=== PATIENT | male | born 1940 | race Caucasian/White ===

== ENCOUNTER 2020-10-17 12:16 | Inpatient (IN) ==
[2020-10-17] MEDS ORDERED: Ondansetron 4 MG/2 ML VIAL IVP ONE (14:06)
[2020-10-17] MEDS ORDERED: Morphine Sulfate 2 MG/ML SYRINGE IVP ONE (14:06)
[2020-10-17] MEDS ORDERED: Ondansetron 4 MG/2 ML VIAL IVP PRN (16:24)
[2020-10-17] MEDS ORDERED: Naloxone 0.4 MG/ML INJ IVP PRN (16:24)
[2020-10-17] MEDS ORDERED: Ondansetron ODT 4 MG TAB.RAPDIS PO PRN (17:12)
[2020-10-17] MEDS ORDERED: *HR* HYDROmorphone (PF) 1 MG/ML SYRINGE IVP ONE (17:13)
[2020-10-17] MEDS ORDERED: Perflutren Lipid Microsphere 1.3 ML in 0.9 % Sodium Chloride 8.7 ML IVP PRN (17:52)
[2020-10-17] MEDS ORDERED: *HR* HYDROmorphone 2 MG/ML SYRINGE IVP ONE (18:00)
[2020-10-17 18:19] LABS: Basophils % 0.3 %; Eosinophils # 0.1 K/mcL (0.0-0.6); Eosinophils % 0.6 %; Hematocrit 35.2 % (37.5-50.1); Hemoglobin 11.8 g/dL (12.9-16.9); Immature Granulocytes % 0.4 % (0-4); Lymphocytes # 1.8 K/mcL (0.6-4.6); Lymphocytes % 16.7 %; Mean Corpuscular HGB Conc 33.5 g/dL (31.6-35.5); Mean Corpuscular Hemoglobin 33.5 pg (28.0-33.3); Mean Platelet Volume 8.5 fL (9.4-12.4); Monocytes # 0.8 K/mcL (0.0-1.3); Monocytes % 7.7 %; Neutrophils # 7.9 K/mcL (1.6-8.9); Platelet Count 299 K/mcL (140-400); Red Blood Count 3.52 M/mcL (4.19-5.50); Red Cell Distribution Width 12.3 % (11.5-14.5); Segmented Neutrophils % 74.3 %; White Blood Count 10.6 K/mcL (4.3-11.1)
[2020-10-17 18:35] LABS: Calcium 9.2 mg/dL (8.6-10.3); Potassium 4.5 mEq/L (3.5-5.1)
[2020-10-17] MEDS: lisinopriL 20 MG TABLET PO SCH (21:25)
[2020-10-17] MEDS: *HR* HYDROmorphone 2 MG/ML SYRINGE IVP PRN (21:35)
[2020-10-18 00:57] LABS: Calcium 8.9 mg/dL (8.6-10.3); Magnesium 2.2 mg/dL (1.6-2.6); Phosphorous 4.1 mg/dL (2.7-4.5); Potassium 4.7 mEq/L (3.5-5.1)
[2020-10-18 00:59] LABS: Basophils # 0.1 K/mcL (0.0-0.2); Basophils % 0.5 %; Eosinophils # 0.1 K/mcL (0.0-0.6); Eosinophils % 0.6 %; Hematocrit 35.1 % (37.5-50.1); Hemoglobin 11.4 g/dL (12.9-16.9); Immature Granulocytes % 0.3 % (0-4); Lymphocytes # 2.1 K/mcL (0.6-4.6); Lymphocytes % 16.8 %; Mean Corpuscular HGB Conc 32.5 g/dL (31.6-35.5); Mean Corpuscular Hemoglobin 32.8 pg (28.0-33.3); Mean Corpuscular Volume 100.9 fL (83.0-100.0); Mean Platelet Volume 8.6 fL (9.4-12.4); Monocytes # 1.1 K/mcL (0.0-1.3); Monocytes % 8.7 %; Neutrophils # 8.9 K/mcL (1.6-8.9); Platelet Count 324 K/mcL (140-400); Red Blood Count 3.48 M/mcL (4.19-5.50); Red Cell Distribution Width 12.3 % (11.5-14.5); Segmented Neutrophils % 73.1 %; White Blood Count 12.2 K/mcL (4.3-11.1)
[2020-10-18] MEDS ORDERED: ABIRATERONE ACETATE 250 MG PO SCH (04:00)
[2020-10-18] MEDS: ABIRATERONE ACETATE 250 MG PO SCH (04:37)
[2020-10-18] MEDS: lisinopriL 20 MG TABLET PO SCH ×2 (08:08→20:10)
[2020-10-18] MEDS: Multivit/Ca/Min/Fe/FA 1 TAB TABLET PO SCH (08:09)
[2020-10-18] MEDS: hydroCHLOROthiazide 25 MG TABLET PO SCH (08:11)
[2020-10-18] MEDS: *HR* OxyCODONE/APAP 5/325 TABLET PO PRN ×2 (08:26→17:16)
[2020-10-18] MEDS ORDERED: (Abiraterone Acetate [Zytiga] 250 MG Tablet) PO SCH (09:00)
[2020-10-18] MEDS: predniSONE 5 MG TABLET PO SCH ×2 (09:33→21:18)
[2020-10-18] MEDS: *HR* HYDROmorphone 2 MG/ML SYRINGE IVP PRN ×2 (13:51→21:18)
[2020-10-18 19:32] LABS: % Iron Saturation 21 % (20-55); Iron 52 mcg/dL (65-175); Transferrin 177 mg/dL (203-362)
[2020-10-18 19:57] LABS: Vitamin B12 1427 pg/mL (250-1100)
[2020-10-18 19:58] LABS: Vitamin D 25 Hydroxy 43 ng/mL (30-80)
[2020-10-19 01:31] LABS: Folate > 22.3 ng/mL (3.0-16.0)
[2020-10-19] MEDS: ABIRATERONE ACETATE 250 MG PO SCH (04:47)
[2020-10-19] MEDS: *HR* HYDROmorphone 2 MG/ML SYRINGE IVP PRN ×4 (06:24→23:50)
[2020-10-19] MEDS: predniSONE 5 MG TABLET PO SCH ×2 (08:30→20:58)
[2020-10-19] MEDS: lisinopriL 20 MG TABLET PO SCH ×2 (08:30→20:56)
[2020-10-19] MEDS: Multivit/Ca/Min/Fe/FA 1 TAB TABLET PO SCH (08:30)
[2020-10-19] MEDS: hydroCHLOROthiazide 25 MG TABLET PO SCH (08:37)
[2020-10-19] MEDS: *HR* OxyCODONE/APAP 5/325 TABLET PO PRN (15:28)
[2020-10-20 01:36] LABS: Basophils # 0.1 K/mcL (0.0-0.2); Basophils % 0.6 %; Eosinophils # 0.1 K/mcL (0.0-0.6); Eosinophils % 0.6 %; Hematocrit 32.8 % (37.5-50.1); Hemoglobin 10.9 g/dL (12.9-16.9); Immature Granulocytes % 0.7 % (0-4); Lymphocytes # 1.6 K/mcL (0.6-4.6); Lymphocytes % 14.5 %; Mean Corpuscular HGB Conc 33.2 g/dL (31.6-35.5); Mean Corpuscular Hemoglobin 33.1 pg (28.0-33.3); Mean Corpuscular Volume 99.7 fL (83.0-100.0); Mean Platelet Volume 8.6 fL (9.4-12.4); Monocytes # 0.8 K/mcL (0.0-1.3); Neutrophils # 8.3 K/mcL (1.6-8.9); Platelet Count 306 K/mcL (140-400); Red Blood Count 3.29 M/mcL (4.19-5.50); Red Cell Distribution Width 12.3 % (11.5-14.5); Segmented Neutrophils % 76.6 %; White Blood Count 10.9 K/mcL (4.3-11.1)
[2020-10-20 01:52] LABS: Calcium 8.5 mg/dL (8.6-10.3); Potassium 4.4 mEq/L (3.5-5.1)
[2020-10-20] MEDS: ABIRATERONE ACETATE 250 MG PO SCH (03:46)
[2020-10-20] MEDS: *HR* OxyCODONE/APAP 5/325 TABLET PO PRN (06:11)
[2020-10-20] MEDS: lisinopriL 20 MG TABLET PO SCH ×2 (08:53→22:19)
[2020-10-20] MEDS: polyethylene glycoL 3350 17 GM POWD.PACK PO SCH (08:54)
[2020-10-20] MEDS: Multivit/Ca/Min/Fe/FA 1 TAB TABLET PO SCH (08:54)
[2020-10-20] MEDS: hydroCHLOROthiazide 25 MG TABLET PO SCH (08:56)
[2020-10-20] MEDS: predniSONE 5 MG TABLET PO SCH ×2 (08:57→20:55)
[2020-10-20 11:14] LABS: INR 1.1; Prothrombin Time 12.9 Seconds (9.4-12.1)
[2020-10-20] MEDS: *HR* HYDROmorphone 2 MG/ML SYRINGE IVP PRN (11:32)
[2020-10-20] MEDS ORDERED: *HR* HYDROcodone/Acet 5/325 mg TABLET PO PRN (14:01)
[2020-10-20] MEDS ORDERED: Ondansetron 4 MG/2 ML VIAL IVP PRN (14:01)
[2020-10-20] MEDS ORDERED: Acetaminophen IV 1,000 MG/100 ML BAG IVPB PRN (14:01)
[2020-10-20] MEDS ORDERED: *HR* FentaNYL (PF) 100 MCG/2 ML VIAL IVP PRN (14:01)
[2020-10-20] MEDS ORDERED: Ringers Solution, Lactated 1,000 ML IVC SCH (14:15)
[2020-10-20] MEDS ORDERED: Isovue-300 50ML VIAL ONE (15:46)
[2020-10-20] MEDS ORDERED: *HR* FentaNYL (PF) 100 MCG/2 ML VIAL ONE (15:59)
[2020-10-20] MEDS ORDERED: Lidocaine -MPF 2% 2 ML VIAL ONE (15:59)
[2020-10-20] MEDS ORDERED: Lidocaine -MPF 4% 5 ML AMPUL ONE (15:59)
[2020-10-20] MEDS ORDERED: *HR* Succinylcholine 200 MG/10 ML VIAL IVP ONE (15:59)
[2020-10-20] MEDS ORDERED: *HR* Propofol 200 MG/20 ML VIAL IVP ONE (15:59)
[2020-10-20] MEDS ORDERED: Dexamethasone 4 MG/ML VIAL ONE (15:59)
[2020-10-20] MEDS ORDERED: Ondansetron 4 MG/2 ML VIAL ONE (15:59)
[2020-10-20] MEDS ORDERED: EPHEDrine 50 MG/ML VIAL ONE (16:35)
[2020-10-20] MEDS ORDERED: ceFAZolin 2,000 MG in 0.9 % Sodium Chloride 100 ML IVPB ONE ×2 (17:00→22:14)
[2020-10-21] MEDS: ABIRATERONE ACETATE 250 MG PO SCH (05:26)
[2020-10-21] MEDS: polyethylene glycoL 3350 17 GM POWD.PACK PO SCH (09:02)
[2020-10-21] MEDS: predniSONE 5 MG TABLET PO SCH (09:03)
[2020-10-21] MEDS: hydroCHLOROthiazide 25 MG TABLET PO SCH (09:03)
[2020-10-21] MEDS: Multivit/Ca/Min/Fe/FA 1 TAB TABLET PO SCH (09:03)
[2020-10-21] MEDS: lisinopriL 20 MG TABLET PO SCH (09:03)
[2020-10-21 14:46] VITALS: BP 94/53
== END 2020-10-21 17:30 | disposition home or self-care (01) | DRG 478 ==
LOC: EMEROOARM 12:16 → 3NENU 12:16
PROVIDERS: ADMIT Internal Medicine; ATTEND Internal Medicine

== ENCOUNTER 2021-02-07 14:16 | Inpatient (IN) ==
[2021-02-07] MEDS ORDERED: *HR* Heparin 5,000 UNIT/ML VIAL IVP PRN ×2 (14:27)
[2021-02-07] MEDS ORDERED: 0.9 % Sodium Chloride 1,000 ML IVC ONE (14:27)
[2021-02-07] MEDS ORDERED: Aspirin 81 MG TAB.CHEW PO ONE (14:27)
[2021-02-07] MEDS ORDERED: *HR* Heparin 5,000 UNIT/ML VIAL IVP ONE (14:27)
[2021-02-07] MEDS: Heparin 25,000UNIT/250ML 1/2NS 25,000 UNIT/250 ML IV.SOLN IVC SCH (14:39)
[2021-02-07 14:44] LABS: Basophils # 0.1 K/mcL (0.0-0.2); Basophils % 0.4 %; Eosinophils % 0.1 %; Hematocrit 38.4 % (37.5-50.1); Hemoglobin 12.8 g/dL (12.9-16.9); Immature Granulocytes % 0.6 % (0-4); Lymphocytes # 2.7 K/mcL (0.6-4.6); Lymphocytes % 19.3 %; Mean Corpuscular HGB Conc 33.3 g/dL (31.6-35.5); Mean Corpuscular Hemoglobin 32.2 pg (28.0-33.3); Mean Corpuscular Volume 96.5 fL (83.0-100.0); Mean Platelet Volume 8.5 fL (9.4-12.4); Monocytes # 0.5 K/mcL (0.0-1.3); Monocytes % 3.5 %; Neutrophils # 10.8 K/mcL (1.6-8.9); Platelet Count 260 K/mcL (140-400); Red Blood Count 3.98 M/mcL (4.19-5.50); Red Cell Distribution Width 12.9 % (11.5-14.5); Segmented Neutrophils % 76.1 %; White Blood Count 14.1 K/mcL (4.3-11.1)
[2021-02-07] MEDS ORDERED: Heparin 1,000 UNITS/500 mL 500 ML ONE ×2 (14:50→15:44)
[2021-02-07] MEDS ORDERED: *HR* Heparin 10,000 UNIT/10 ML VIAL ONE (14:50)
[2021-02-07] MEDS ORDERED: ISOVUE-370 200 ML INFUS..BTL ONE ×2 (14:50→16:00)
[2021-02-07] MEDS ORDERED: Nitroglycerin 1,000 MCG/5 ML VIAL IV ONE (14:50)
[2021-02-07] MEDS ORDERED: 0.9 % Sodium Chloride 2,000 ML ONE (14:50)
[2021-02-07 14:52] LABS: INR 1.3; Prothrombin Time 14.8 Seconds (9.4-12.1)
[2021-02-07 14:53] LABS: Activated Partial Thrombo Time 22.9 Seconds (26.0-36.0)
[2021-02-07] MEDS ORDERED: *HR* Ticagrelor 90 MG TABLET PO ONE (14:54)
[2021-02-07] MEDS ORDERED: *HR* Ticagrelor 90 MG TABLET ONE (14:55)
[2021-02-07 15:10] LABS: Alanine Aminotransferase 20 Units/L (7-52); Albumin/Globulin Ratio 1.6 (1.1-2.2); Alkaline Phosphatase 47 Units/L (34-104); Aspartate Amino Transferase 70 Units/L (13-39); BUN/Creatinine Ratio 15 (6-26); Bilirubin,Total 1.3 mg/dL (0.3-1.0); Blood Urea Nitrogen 20 mg/dL (8-23); Calcium 8.6 mg/dL (8.6-10.3); Carbon Dioxide 23 mEq/L (23-29); Chloride 98 mEq/L (98-107); Globulin 2.5 g/dL (2.4-3.5); Glucose 154 mg/dL (70-105); Magnesium 1.7 mg/dL (1.6-2.6); Osmolality,Calculated 284 (280-300); Potassium 3.3 mEq/L (3.5-5.1); Sodium 134 mEq/L (136-145); Total Protein 6.5 g/dL (6.4-8.9); eGFR For African Americans > 60 (> 60); eGFR For Non-African Americans 51 (> 60)
[2021-02-07] MEDS ORDERED: Ondansetron 4 MG/2 ML VIAL ONE (15:29)
[2021-02-07] MEDS ORDERED: Naloxone 0.4 MG/ML INJ IVP PRN (16:53)
[2021-02-07] MEDS ORDERED: Acetaminophen 325 MG TABLET PO PRN (16:53)
[2021-02-07] MEDS ORDERED: Morphine Sulfate 2 MG/ML SYRINGE IVP PRN (16:56)
[2021-02-07] MEDS ORDERED: Ringers Solution, Lactated 1,000 ML IVC SCH (17:00)
[2021-02-07] MEDS ORDERED: Ringers Solution, Lactated 500 ML IVC ONE (17:04)
[2021-02-07] MEDS ORDERED: Perflutren Lipid Microsphere 1.3 ML in 0.9 % Sodium Chloride 8.7 ML IVP PRN (17:06)
[2021-02-07] MEDS ORDERED: 0.9 % Sodium Chloride 1,000 ML IVC SCH (17:15)
[2021-02-07] MEDS ORDERED: Lidocaine -MPF 2% 5 ML VIAL ONE (17:33)
[2021-02-07] MEDS: 0.9 % Sodium Chloride 1,000 ML IVC SCH ×2 (17:34→19:20)
[2021-02-07] MEDS ORDERED: 0.9 % Sodium Chloride 500 ML ONE (17:43)
[2021-02-07] MEDS: Phenylephrine 10 MG in 0.9 % Sodium Chloride 250 ML IVC SCH ×2 (17:51→19:30)
[2021-02-07 19:14] LABS: Adenovirus Not Detected (Not Detect); Bordetella Pertussis Not Detected (Not Detect); Chlamydophila pneumoniae Not Detected (Not Detect); Coronavirus 229E Not Detected (Not Detect); Coronavirus HKU1 Not Detected (Not Detect); Coronavirus NL63 Not Detected (Not Detect); Coronavirus OC43 Not Detected (Not Detect); Human Metapneumovirus Not Detected (Not Detect); Human Rhinovirus/Enterovirus Not Detected (Not Detect); Influenza A Subtype 2009 H1 Not Detected (Not Detect); Influenza B Not Detected (Not Detect); Mycoplasma pneumoniae Not Detected (Not Detect); Parainfluenza Virus 1 Not Detected (Not Detect); Parainfluenza Virus 2 Not Detected (Not Detect); Parainfluenza Virus 3 Not Detected (Not Detect); Parainfluenza Virus 4 Not Detected (Not Detect); Respiratory Syncytial Virus Not Detected (Not Detect); SARS-CoV-2 Not Detected (Not Detect)
[2021-02-07 19:26] LABS: BUN/Creatinine Ratio 14 (6-26); Blood Urea Nitrogen 19 mg/dL (8-23); Calcium 7.4 mg/dL (8.6-10.3); Carbon Dioxide 23 mEq/L (23-29); Chloride 102 mEq/L (98-107); Glucose 119 mg/dL (70-105); Osmolality,Calculated 285 (280-300); Potassium 3.4 mEq/L (3.5-5.1); Sodium 136 mEq/L (136-145); eGFR For African Americans > 60 (> 60); eGFR For Non-African Americans 50 (> 60)
[2021-02-07] MEDS: Doxycycline 100 MG CAPSULE PO SCH (19:42)
[2021-02-07] MEDS ORDERED: Acetaminophen IV 1,000 MG/100 ML BAG IVPB ONE (20:07)
[2021-02-07] MEDS: Phenylephrine 50 MG in 0.9 % Sodium Chloride 250 ML IVC SCH (20:33)
[2021-02-07] MEDS: Norepinephrine 4 MG/254 ML IV.SOLN IVC SCH (20:54)
[2021-02-07] MEDS: Vasopressin 40 UNIT in D5% in Water 100 ML IVC SCH (22:21)
[2021-02-07 22:31] LABS: ABG Ionized Calcium 0.99 mmol/L (1.15-1.35)
[2021-02-07] MEDS ORDERED: Calcium Gluconate 1gm/50mL 1 GM/50 ML BAG IVPB PRN (22:35)
[2021-02-07] MEDS ORDERED: Potassium Chloride 40 MEQ/200 ML BAG IVPB PRN (22:36)
[2021-02-07 22:47] LABS: Calcium 7.2 mg/dL (8.6-10.3); Magnesium 1.6 mg/dL (1.6-2.6); Potassium 3.3 mEq/L (3.5-5.1)
[2021-02-07 22:47] LABS: ABG Base Excess -4 mEq/L (-2 to 3); ABG HCO3 20 mEq/L (21-27); ABG Oxygen Saturation 94 % (95-98); ABG PCO2 31 mmHg (35-45); ABG PH 7.42 pH Units (7.32-7.45); ABG PO2 68 mmHg (85-104); ABG TCO2 21 mEq/L (20-26)
[2021-02-07] MEDS: Calcium Gluconate 1gm/50mL 1 GM/50 ML BAG IVPB PRN (22:51)
[2021-02-07 23:23] LABS: Bacteria,Urine Few per hpf (None-Few); Bilirubin,Urine Negative (Negative); Blood,Urine Large (Negative); Clarity,Urine Clear (Clear); Color,Urine Yellow (Yellow); Glucose,Urine (UA) Normal (Normal); Ketones,Urine Negative (Negative); Leukocyte Esterase,Urine Negative (Negative); Nitrite,Urine Negative (Negative); PH,Urine 6.5 pH Units (5.0-8.0); Protein,Urine 30 mg/dL (Neg-Trace); Specific Gravity,Urine > 1.030 (1.010-1.025); Urobilinogen,Urine Normal (Normal); WBC,Urine 0-3 per hpf (0-3)
[2021-02-08] MEDS: Acetaminophen IV 1,000 MG/100 ML BAG IVPB SCH ×2 (01:56→08:11)
[2021-02-08] MEDS: Ondansetron 4 MG/2 ML VIAL IVP PRN ×2 (02:02→09:09)
[2021-02-08] MEDS: Phenylephrine 50 MG in 0.9 % Sodium Chloride 250 ML IVC SCH ×3 (02:05→14:10)
[2021-02-08 03:41] LABS: Basophils # 0.1 K/mcL (0.0-0.2); Basophils % 0.5 %; Eosinophils # 0.1 K/mcL (0.0-0.6); Eosinophils % 0.4 %; Hematocrit 34.3 % (37.5-50.1); Hemoglobin 11.3 g/dL (12.9-16.9); Immature Granulocytes % 0.7 % (0-4); Lymphocytes # 2.6 K/mcL (0.6-4.6); Lymphocytes % 23.4 %; Mean Corpuscular HGB Conc 32.9 g/dL (31.6-35.5); Mean Corpuscular Hemoglobin 31.7 pg (28.0-33.3); Mean Corpuscular Volume 96.3 fL (83.0-100.0); Mean Platelet Volume 8.6 fL (9.4-12.4); Monocytes # 0.6 K/mcL (0.0-1.3); Monocytes % 5.2 %; Neutrophils # 7.8 K/mcL (1.6-8.9); Platelet Count 234 K/mcL (140-400); Red Blood Count 3.56 M/mcL (4.19-5.50); Red Cell Distribution Width 13.2 % (11.5-14.5); Segmented Neutrophils % 69.8 %; White Blood Count 11.2 K/mcL (4.3-11.1)
[2021-02-08 03:46] LABS: INR 1.5; Prothrombin Time 17.2 Seconds (9.4-12.1)
[2021-02-08 03:55] LABS: Calcium 7.7 mg/dL (8.6-10.3); Potassium 3.6 mEq/L (3.5-5.1)
[2021-02-08 06:16] LABS: Calcium 7.7 mg/dL (8.6-10.3); Magnesium 2.2 mg/dL (1.6-2.6)
[2021-02-08] MEDS: Pantoprazole 40 MG VIAL IVP SCH (06:45)
[2021-02-08] MEDS: Hydrocortisone Sodium Succ 100 MG/2 ML VIAL IVP SCH ×4 (09:08→23:19)
[2021-02-08] MEDS: Aspirin 81 MG TAB.CHEW PO SCH (09:12)
[2021-02-08] MEDS: Doxycycline 100 MG CAPSULE PO SCH ×2 (09:12→20:21)
[2021-02-08] MEDS: Heparin 25,000UNIT/250ML 1/2NS 25,000 UNIT/250 ML IV.SOLN IVC SCH (09:22)
[2021-02-08] MEDS ORDERED: Potassium Chloride 20 MEQ, Lidocaine 1% 2 ML in 0.9 % Sodium Chloride 250 ML IVPB ONE (10:13)
[2021-02-08] MEDS ORDERED: *HR* OxyCODONE/APAP 5/325 TABLET PO PRN (12:12)
[2021-02-08] MEDS: *HR* OxyCODONE Immed Rel 5 MG TABLET PO PRN ×2 (12:22→20:26)
[2021-02-08] MEDS ORDERED: 0.9 % Sodium Chloride 1,000 ML ONE (13:43)
[2021-02-08] MEDS: Norepinephrine 4 MG/254 ML IV.SOLN IVC SCH (17:30)
[2021-02-08] MEDS: Vasopressin 40 UNIT in D5% in Water 100 ML IVC SCH (17:42)
[2021-02-08] MEDS: Cefepime HCl 2,000 MG in Water for inj. (sterile) 20 ML IVP SCH (20:21)
[2021-02-09 04:14] LABS: VBG Ionized Calcium 1.04 mmol/L (1.15-1.35)
[2021-02-09 04:15] LABS: Basophils % 0.1 %; Hematocrit 31.9 % (37.5-50.1); Hemoglobin 10.6 g/dL (12.9-16.9); Immature Granulocytes % 0.5 % (0-4); Lymphocytes # 0.6 K/mcL (0.6-4.6); Mean Corpuscular HGB Conc 33.2 g/dL (31.6-35.5); Mean Corpuscular Hemoglobin 32.5 pg (28.0-33.3); Mean Corpuscular Volume 97.9 fL (83.0-100.0); Monocytes # 0.3 K/mcL (0.0-1.3); Monocytes % 2.9 %; Neutrophils # 10.3 K/mcL (1.6-8.9); Platelet Count 190 K/mcL (140-400); Red Blood Count 3.26 M/mcL (4.19-5.50); Red Cell Distribution Width 13.2 % (11.5-14.5); Segmented Neutrophils % 91.5 %; White Blood Count 11.3 K/mcL (4.3-11.1)
[2021-02-09] MEDS: Heparin 25,000UNIT/250ML 1/2NS 25,000 UNIT/250 ML IV.SOLN IVC SCH ×2 (04:16→13:00)
[2021-02-09 04:24] LABS: INR 1.6; Prothrombin Time 18.8 Seconds (9.4-12.1)
[2021-02-09 04:34] LABS: Alanine Aminotransferase 347 Units/L (7-52); Albumin 3.2 g/dL (3.5-5.7); Albumin/Globulin Ratio 1.4 (1.1-2.2); Alkaline Phosphatase 35 Units/L (34-104); Aspartate Amino Transferase 265 Units/L (13-39); BUN/Creatinine Ratio 23 (6-26); Bilirubin,Total 0.9 mg/dL (0.3-1.0); Blood Urea Nitrogen 27 mg/dL (8-23); Calcium 7.4 mg/dL (8.6-10.3); Carbon Dioxide 20 mEq/L (23-29); Chloride 105 mEq/L (98-107); Globulin 2.3 g/dL (2.4-3.5); Glucose 162 mg/dL (70-105); Magnesium 2.2 mg/dL (1.6-2.6); Osmolality,Calculated 287 (280-300); Phosphorous 2.7 mg/dL (2.7-4.5); Potassium 4.2 mEq/L (3.5-5.1); Sodium 134 mEq/L (136-145); Total Protein 5.5 g/dL (6.4-8.9); eGFR For African Americans > 60 (> 60); eGFR For Non-African Americans > 60 (> 60)
[2021-02-09] MEDS: Calcium Gluconate 1gm/50mL 1 GM/50 ML BAG IVPB PRN ×2 (04:42→13:00)
[2021-02-09] MEDS: Pantoprazole 40 MG VIAL IVP SCH (05:30)
[2021-02-09] MEDS: Hydrocortisone Sodium Succ 100 MG/2 ML VIAL IVP SCH ×3 (05:31→23:35)
[2021-02-09] MEDS ORDERED: 0.9 % Sodium Chloride 500 ML IVC ONE (06:21)
[2021-02-09] MEDS: Cefepime HCl 2,000 MG in Water for inj. (sterile) 20 ML IVP SCH ×2 (07:30→21:05)
[2021-02-09] MEDS: Doxycycline 100 MG CAPSULE PO SCH ×2 (07:31→21:05)
[2021-02-09] MEDS: Aspirin 81 MG TAB.CHEW PO SCH (07:31)
[2021-02-09 11:15] LABS: ABG Ionized Calcium 1.07 mmol/L (1.15-1.35)
[2021-02-09 19:05] LABS: VBG Ionized Calcium 1.13 mmol/L (1.15-1.35)
[2021-02-09] MEDS: Norepinephrine 4 MG/254 ML IV.SOLN IVC SCH (19:40)
[2021-02-09] MEDS: Vasopressin 40 UNIT in D5% in Water 100 ML IVC SCH (19:41)
[2021-02-09] MEDS: Apixaban 5 MG TABLET PO SCH (21:06)
[2021-02-10 04:45] LABS: Basophils % 0.1 %; Hematocrit 30.2 % (37.5-50.1); Hemoglobin 10.2 g/dL (12.9-16.9); Immature Granulocytes % 0.6 % (0-4); Lymphocytes # 0.6 K/mcL (0.6-4.6); Lymphocytes % 5.4 %; Mean Corpuscular HGB Conc 33.8 g/dL (31.6-35.5); Mean Corpuscular Hemoglobin 32.4 pg (28.0-33.3); Mean Corpuscular Volume 95.9 fL (83.0-100.0); Mean Platelet Volume 9.2 fL (9.4-12.4); Monocytes # 0.4 K/mcL (0.0-1.3); Monocytes % 3.7 %; Neutrophils # 9.4 K/mcL (1.6-8.9); Platelet Count 193 K/mcL (140-400); Red Blood Count 3.15 M/mcL (4.19-5.50); Red Cell Distribution Width 13.1 % (11.5-14.5); Segmented Neutrophils % 90.2 %; White Blood Count 10.4 K/mcL (4.3-11.1)
[2021-02-10 05:03] LABS: VBG Ionized Calcium 1.12 mmol/L (1.15-1.35)
[2021-02-10 05:06] LABS: Alanine Aminotransferase 256 Units/L (7-52); Albumin 3.1 g/dL (3.5-5.7); Albumin/Globulin Ratio 1.3 (1.1-2.2); Alkaline Phosphatase 36 Units/L (34-104); Aspartate Amino Transferase 122 Units/L (13-39); BUN/Creatinine Ratio 28 (6-26); Bilirubin,Total 0.6 mg/dL (0.3-1.0); Blood Urea Nitrogen 27 mg/dL (8-23); Calcium 7.7 mg/dL (8.6-10.3); Carbon Dioxide 23 mEq/L (23-29); Chloride 106 mEq/L (98-107); Globulin 2.3 g/dL (2.4-3.5); Glucose 148 mg/dL (70-105); Magnesium 2.4 mg/dL (1.6-2.6); Osmolality,Calculated 286 (280-300); Phosphorous 1.5 mg/dL (2.7-4.5); Sodium 134 mEq/L (136-145); Total Protein 5.4 g/dL (6.4-8.9); eGFR For African Americans > 60 (> 60); eGFR For Non-African Americans > 60 (> 60)
[2021-02-10] MEDS: Pantoprazole 40 MG VIAL IVP SCH (05:56)
[2021-02-10] MEDS: Aspirin 81 MG TAB.CHEW PO SCH (07:25)
[2021-02-10] MEDS: Apixaban 5 MG TABLET PO SCH ×2 (07:25→20:49)
[2021-02-10] MEDS: Cefepime HCl 2,000 MG in Water for inj. (sterile) 20 ML IVP SCH ×2 (07:25→20:50)
[2021-02-10] MEDS: Doxycycline 100 MG CAPSULE PO SCH ×2 (07:25→20:50)
[2021-02-10] MEDS: Hydrocortisone Sodium Succ 100 MG/2 ML VIAL IVP SCH ×2 (11:55→23:38)
[2021-02-11 03:29] LABS: Basophils % 0.1 %; Eosinophils % 0.4 %; Hematocrit 30.2 % (37.5-50.1); Immature Granulocytes % 0.7 % (0-4); Lymphocytes # 0.4 K/mcL (0.6-4.6); Lymphocytes % 5.2 %; Mean Corpuscular HGB Conc 33.1 g/dL (31.6-35.5); Mean Corpuscular Hemoglobin 32.5 pg (28.0-33.3); Mean Corpuscular Volume 98.1 fL (83.0-100.0); Monocytes # 0.4 K/mcL (0.0-1.3); Monocytes % 4.9 %; Neutrophils # 6.3 K/mcL (1.6-8.9); Platelet Count 195 K/mcL (140-400); Red Blood Count 3.08 M/mcL (4.19-5.50); Red Cell Distribution Width 13.2 % (11.5-14.5); Segmented Neutrophils % 88.7 %; White Blood Count 7.1 K/mcL (4.3-11.1)
[2021-02-11 03:36] LABS: VBG Ionized Calcium 1.08 mmol/L (1.15-1.35)
[2021-02-11 03:53] LABS: Alanine Aminotransferase 207 Units/L (7-52); Albumin 3.1 g/dL (3.5-5.7); Albumin/Globulin Ratio 1.3 (1.1-2.2); Alkaline Phosphatase 34 Units/L (34-104); Aspartate Amino Transferase 77 Units/L (13-39); BUN/Creatinine Ratio 25 (6-26); Bilirubin,Total 0.7 mg/dL (0.3-1.0); Blood Urea Nitrogen 20 mg/dL (8-23); Calcium 7.4 mg/dL (8.6-10.3); Carbon Dioxide 22 mEq/L (23-29); Chloride 107 mEq/L (98-107); Globulin 2.4 g/dL (2.4-3.5); Glucose 154 mg/dL (70-105); Magnesium 2.3 mg/dL (1.6-2.6); Osmolality,Calculated 288 (280-300); Phosphorous 1.4 mg/dL (2.7-4.5); Potassium 3.7 mEq/L (3.5-5.1); Sodium 136 mEq/L (136-145); Total Protein 5.5 g/dL (6.4-8.9); eGFR For African Americans > 60 (> 60); eGFR For Non-African Americans > 60 (> 60)
[2021-02-11 04:01] VITALS: TEMP 98.1
[2021-02-11] MEDS: Pantoprazole 40 MG VIAL IVP SCH (05:20)
[2021-02-11] MEDS: Doxycycline 100 MG CAPSULE PO SCH (09:30)
[2021-02-11] MEDS: predniSONE 5 MG TABLET PO SCH ×2 (09:31→11:14)
[2021-02-11] MEDS: Apixaban 5 MG TABLET PO SCH (09:31)
[2021-02-11] MEDS: Aspirin 81 MG TAB.CHEW PO SCH (09:31)
[2021-02-11] MEDS: Cefepime HCl 2,000 MG in Water for inj. (sterile) 20 ML IVP SCH (09:37)
[2021-02-11] MEDS: Calcium Gluconate 1gm/50mL 1 GM/50 ML BAG IVPB SCH ×2 (09:38→11:06)
[2021-02-11 12:06] VITALS: BP 118/79; PULSE 87; O2SAT 97
== END 2021-02-11 15:09 | disposition home or self-care (01) | DRG 247 ==
LOC: EMEROOARM 14:16 → ICNU 15:39 → 2ANU 02-10 20:22
PROVIDERS: ADMIT Internal Medicine Cardiovascular Disease; ATTEND Internal Medicine Cardiovascular Disease

== ENCOUNTER 2021-08-21 18:36 | Observation (INO) ==
[~2021-08-21 18:36] MED LIST: *HR* Amiodarone 150 MG/3 ML VIAL IVPB ONE; *HR* EPINEPHrine 1 MG/10 ML SYRINGE ONE; Norepinephrine 4 MG/254 ML in 0.9% Sodium Chloride IVC ONE
[2021-08-21 18:56] VITALS: BP 92/70; PULSE 125; TEMP 99.3
[2021-08-21 19:03] LABS: ABG Base Excess -12 mEq/L (-2 to 3); ABG HCO3 23 mEq/L (21-27); ABG Oxygen Saturation 39 % (95-98); ABG PCO2 113 mmHg (35-45); ABG PH 6.92 pH Units (7.32-7.45); ABG PO2 38 mmHg (85-104); ABG TCO2 26 mEq/L (20-26); Blood Gas Modality ASSIST CONTROL; Blood Gas VT 500 cc
[2021-08-21] MEDS ORDERED: *HR* LORazepam 2 MG/ML VIAL ONE ×2 (19:06→22:48)
[2021-08-21] MEDS ORDERED: *HR* LORazepam 2 MG/ML VIAL IVP ONE ×2 (19:08→22:59)
[2021-08-21 19:10] LABS: ABG Base Excess -14 mEq/L (-2 to 3); ABG HCO3 17 mEq/L (21-27); ABG Oxygen Saturation 100 % (95-98); ABG PCO2 60 mmHg (35-45); ABG PH 7.05 pH Units (7.32-7.45); ABG PO2 286 mmHg (85-104); ABG TCO2 18 mEq/L (20-26); Blood Gas Modality ASSIST CONTROL; Blood Gas VT 500 cc
[2021-08-21] MEDS ORDERED: levETIRAcetam 1,000 MG in 0.9 % Sodium Chloride 100 ML IVPB ONE (20:00)
[2021-08-21 20:23] LABS: Hematocrit 42.1 % (37.5-50.1); Hemoglobin 12.3 g/dL (12.9-16.9); Mean Corpuscular HGB Conc 29.2 g/dL (31.6-35.5); Mean Corpuscular Hemoglobin 31.1 pg (28.0-33.3); Mean Corpuscular Volume 106.6 fL (83.0-100.0); Mean Platelet Volume 9.6 fL (9.4-12.4); Nucleated Red Blood Cells 0.6 /100 WBC (0); Platelet Count 276 K/mcL (140-400); Red Blood Count 3.95 M/mcL (4.19-5.50); Red Cell Distribution Width 13.5 % (11.5-14.5); White Blood Count 10.8 K/mcL (4.3-11.1)
[2021-08-21 20:33] LABS: BUN/Creatinine Ratio 19 (6-26); Blood Urea Nitrogen 26 mg/dL (8-23); Calcium 8.9 mg/dL (8.6-10.3); Carbon Dioxide 24 mEq/L (23-29); Chloride 99 mEq/L (98-107); Glucose 241 mg/dL (70-105); Osmolality,Calculated 313 (280-300); Potassium 2.8 mEq/L (3.5-5.1); Sodium 145 mEq/L (136-145); eGFR For African Americans > 60 (> 60); eGFR For Non-African Americans 50 (> 60)
[2021-08-21 20:37] LABS: Troponin I 0.05 ng/mL (< 0.04)
[2021-08-21 20:54] VITALS: O2SAT 98
[2021-08-21] MEDS ORDERED: *HR* FentaNYL (PF) 100 MCG/2 ML VIAL IVP ONE (21:18)
[2021-08-21 21:25] LABS: Lymphocytes # 6.5 K/mcL (0.6-4.6); Monocytes # 0.9 K/mcL (0.0-1.3); Neutrophils # 3.2 K/mcL (1.6-8.9); Platelet Estimate Normal (Normal); Reactive Lymphocytes Present (Not Present)
[2021-08-21] MEDS ORDERED: Morphine Sulfate 2 MG/ML SYRINGE IVP PRN (21:27)
[2021-08-21] MEDS: *HR* LORazepam 2 MG/ML VIAL IVP PRN (21:42)
[2021-08-22] MEDS ORDERED: Morphine Sulfate 2 MG/ML SYRINGE IVP STA ×2 (00:07→01:04)
[2021-08-22] MEDS ORDERED: *HR* LORazepam 2 MG/ML VIAL IVP STA (00:08)
[2021-08-22] MEDS ORDERED: *HR* LORazepam 2 MG/ML VIAL IVP ONE (01:04)
[2021-08-22] MEDS ORDERED: Morphine Sulfate 2 MG/ML SYRINGE IVP PRN (01:05)
[2021-08-22] MEDS ORDERED: Atropine Sulfate 1% 40 DROP/2 ML BOTTLE SL PRN (03:32)
[2021-08-22] MEDS ORDERED: Scopolamine Patch 1.5 MG PATCH.TD72 TD SCH (03:45)
[2021-08-22] MEDS ORDERED: *HR* HYDROmorphone (PF) 1 MG/ML SYRINGE IVP PRN (04:00)
[2021-08-22] MEDS: Morphine Sulfate 2 MG/ML SYRINGE IVP SCH ×2 (04:12→05:15)
[2021-08-22] MEDS: *HR* LORazepam 2 MG/ML VIAL IVP PRN (04:13)
[2021-08-22] MEDS: Atropine Sulfate 1% 40 DROP/2 ML BOTTLE SL SCH ×2 (04:20→05:35)
== END 2021-08-22 09:35 | disposition expired ==
LOC: EMEROOARM 18:36 → 2ANU 18:36 → MERGE 08-22 02:43 → 2ANU 08-22 02:46
PROVIDERS: ADMIT Student in an Organized Health Care Education/Training Program; ATTEND Student in an Organized Health Care Education/Training Program